=== PATIENT | male | born 1970 | race Caucasian/White ===

== ENCOUNTER → 2016-11-16 | Outpatient (CLI) | payer BC, OTHER ==
[2016-11-16 10:06] LABS: ALT/SGPT 38 U/L (12-78); AST/SGOT 19 U/L (15-37); BLOOD UREA NITROGEN 18 mg/dl (7-18); CALCIUM 9.4 mg/dl (8.5-10.1); CARBON DIOXIDE 28 mmol/L (21-32); CHLORIDE 102 mmol/L (98-107); GLUCOSE 94 mg/dl (70-99); POTASSIUM 4.3 mmol/L (3.5-5.1); SODIUM 138 mmol/L (136-145)
[2016-11-16 10:08] LABS: ALKALINE PHOSPHATASE 77 U/L (45-117); CHOLESTEROL 158 mg/dl (0-200); CHOLESTEROL/HDL RATIO 3.8; HDL CHOLESTEROL 42 mg/dl; LDL CHOLESTEROL CALCULATED 97 mg/dl; TRIGLYCERIDES 95 mg/dl (0-150); VERY LOW DENSITY LIPOPROT CALC 19 mg/dl
== END | disposition home or self-care (01) ==
LOC: C.LAB 07:16
PROVIDERS: ATTEND Nurse Practitioner Family
DX: E78.00 Pure hypercholesterolemia, unspecified (principal); Z51.81 Encounter for therapeutic drug level monitoring; Z79.899 Other long term (current) drug therapy

== ENCOUNTER → 2017-12-10 | Outpatient (CLI) | payer OTHER ==
[2017-12-10 09:36] LABS: BASO % 0.3 %; BASO ABS # 0.02 K/uL (0-0.2); EOS % 3.2 %; EOS ABS # 0.21 K/uL (0-0.5); HEMATOCRIT 46.2 % (42-52); HEMOGLOBIN 15.9 g/dL (14.0-18.0); IG# 0.03 K/uL (0.00-0.02); LYMPH % 24.4 %; LYMPH ABS # 1.58 K/uL (1.2-3.4); MEAN CELL VOLUME 88.3 fL (80-100); MEAN CORPUSCULAR HEMOGLOBIN 30.4 pg (25-34); MEAN CORPUSCULAR HGB CONC 34.4 g/dl (32-36); MONO % 8.2 %; MONO ABS # 0.53 K/uL (0.11-0.59); NEUT % 63.4 %; PLATELET COUNT 194 K/uL (130-400); RED CELL DISTRIBUTION WIDTH CV 13.9 % (11.5-14.5); WHITE BLOOD COUNT 6.47 K/uL (4.8-10.8)
[2017-12-10 09:55] LABS: ALBUMIN 3.8 gm/dl (3.4-5.0); ALKALINE PHOSPHATASE 64 U/L (45-117); ALT/SGPT 40 U/L (12-78); AST/SGOT 14 U/L (15-37); BLOOD UREA NITROGEN 12 mg/dl (7-18); CALCIUM 9.4 mg/dl (8.5-10.1); CARBON DIOXIDE 30 mmol/L (21-32); CHOLESTEROL 180 mg/dl (0-200); CREATININE 1.07 mg/dl (0.60-1.40); GLUCOSE 96 mg/dl (70-99); LDL CHOLESTEROL (DIRECT) 131 mg/dl; POTASSIUM 4.1 mmol/L (3.5-5.1); SODIUM 136 mmol/L (136-145); TOTAL PROTEIN 7.7 gm/dl (6.4-8.2)
== END | disposition home or self-care (01) ==
LOC: C.LAB 07:18
DX: I10 Essential (primary) hypertension (principal)

== ENCOUNTER → 2017-12-13 | Outpatient (CLI) | payer OTHER ==
[~2017-12-13] MED LIST: PERFLUTREN LIPID MICROSPHERE (DEFINITY) IV ONE
--- NOTE | 2017-12-13 16:05 | ECHOCARDIOGRAM REPORT ---
*NOTICE TO RECEIVING LIBERTARIAN AGENCY This information is strictly Confidential and protected under [place] law. [place] law prohibits you from making any further disclosure of this information unless further disclosure is expressly permitted by the written consent of the person to whom it pertains or is authorized by law. A general authorization for the release of medical or other information is not sufficient for this purpose. Hospital accepts no responsibility if the information is made available to any other person, INCLUDING THE PATIENT. Interpretation Summary * Name: KARLENE SHEPPARD III Study Date: 12/13/2017 12:23 PM BP: 120/84 mmHg * Patient Location: [facility] HR: 98 * : 1970 (M/d/yyyy) Gender: Male Height: 73 in * Age: 47 yrs Ethnicity: [place] Weight: 300 lb * Ordering Physician: Taras Mcdonald * Referring Physician: Taras Mcdonald * Performed By: Yanique Donis RDCS * * Reason For Study: TACHYCARDIA * BSA: 2.6 m2 * -- Conclusions -- * 1. Normal LV size. Borderline concentric LVH. * 2. Normal LV systolic function. LVEF 60-65%. No regional wall motion abnormalities. * 3. Normal RV size and function. * 4. No significant valvular pathology. * 5. Grade I diastolic dysfunction. * 6. No prior studies for comparison. Procedure Details * A contrast injection of Definity was performed to improve assessment of LV function. * Contrast was injected into an intravenous site in the left arm. * One vial of Definity ultrasound contrast was diluted in normal saline to a total volume of 10 ml. A total of '2' ml of solution was administered during imaging. * Lot # [id number] of Definity utilized for procedure. * Expiration date NOV 19. * The attending nurse who injected the contrast agent was ENE SALDANA RN. Left Ventricle * The left ventricle is grossly normal size. * There is borderline concentric left ventricular hypertrophy. * Ejection Fraction = 60-65%. * No regional wall motion abnormalities noted. Right Ventricle * The right ventricle is grossly normal size. * The right ventricular systolic function is normal as assessed by tricuspid annular plane systolic excursion (TAPSE) (normal >1.5 cm). Atria * The left atrium is moderately dilated. * Right atrial size is normal. * No ASD detected; PFO is not assessed. Mitral Valve * The mitral valve is grossly normal. * There is no mitral valve stenosis. * There is trace mitral regurgitation. Tricuspid Valve * There is trace tricuspid regurgitation. Aortic Valve * The aortic valve opens well. * The aortic valve is trileaflet. * No hemodynamically significant valvular aortic stenosis. * There is no significant aortic regurgitation. Pulmonic Valve * The pulmonary valve is inadequately visualized, but the Doppler data is adequate for interpretation. * Pulmonic stenosis is absent. * There is no significant pulmonary regurgitation. Great Vessels * The aortic root and proximal ascending aorta are normal sized. Pericardium/Pleural * There is no pericardial effusion. Great Vessels * Normal inferior vena cava size and collapsability with sniff indicates a normal right atrial pressure of 3 mmHg Left Ventricular Diastolic Function * Grade I diastolic dysfunction, (abnormal relaxation pattern). MMode 2D Measurements and Calculations IVSd 1.1 cm IVSs 1.6 cm LVIDd 5.2 cm LVIDs 3.7 cm LVPWd 1.3 cm LVPWs 1.9 cm IVS/LVPW 0.88 FS 28.5 % EDV(Teich) 127.0 ml ESV(Teich) 57.6 ml EF(Teich) 54.7 % EDV(cubed) 137.1 ml ESV(cubed) 50.1 ml EF(cubed) 63.5 % % IVS thick 44.7 % % LVPW thick 51.7 % LV mass(C)d 246.5 grams LV mass(C)dI 96.4 grams/m\S\2 LV mass(C)s 277.0 grams LV mass(C)sI 108.4 grams/m\S\2 SV(Teich) 69.4 ml SI(Teich) 27.2 ml/m\S\2 SV(cubed) 87.1 ml SI(cubed) 34.1 ml/m\S\2 Ao root diam 3.5 cm Ao root area 9.7 cm\S\2 LA dimension 4.1 cm LA/Ao 1.2 LVAd ap4 33.7 cm\S\2 LVLd ap4 9.3 cm EDV(MOD-sp4) 99.5 ml EDV(sp4-el) 103.4 ml LVAs ap4 19.5 cm\S\2 LVLs ap4 7.2 cm ESV(MOD-sp4) 43.8 ml ESV(sp4-el) 45.1 ml EF(MOD-sp4) 56.0 % EF(sp4-el) 56.4 % LVAd ap2 28.9 cm\S\2 LVLd ap2 8.6 cm EDV(MOD-sp2) 78.7 ml EDV(sp2-el) 82.3 ml LVAs ap2 17.0 cm\S\2 LVLs ap2 7.7 cm ESV(MOD-sp2) 30.1 ml ESV(sp2-el) 31.9 ml EF(MOD-sp2) 61.8 % EF(sp2-el) 61.2 % LVLd %diff -8.43 % EDV(MOD-bp) 92.7 ml LVLs %diff 6.6 % ESV(MOD-bp) 37.9 ml EF(MOD-bp) 59.1 % SV(MOD-sp4) 55.7 ml SI(MOD-sp4) 21.8 ml/m\S\2 SV(MOD-sp2) 48.6 ml SI(MOD-sp2) 19.0 ml/m\S\2 SV(MOD-bp) 54.8 ml SI(MOD-bp) 21.4 ml/m\S\2 SV(sp4-el) 58.3 ml SI(sp4-el) 22.8 ml/m\S\2 SV(sp2-el) 50.4 ml SI(sp2-el) 19.7 ml/m\S\2 Doppler Measurements and Calculations MV E max sharonda 57.8 cm/sec MV A max sharonda 67.2 cm/sec MV E/A 0.86 MV dec time 0.21 sec Ao V2 max 131.1 cm/sec Ao max PG 6.9 mmHg Ao max PG (full) 1.1 mmHg LV V1 max PG 5.8 mmHg LV V1 max 120.4 cm/sec
== END | disposition home or self-care (01) ==
LOC: C.CPL 12:16
PROVIDERS: ATTEND Internal Medicine
DX: R00.0 Tachycardia, unspecified (principal)